=== PATIENT | female | born 1975 | race Caucasian/White ===

== ENCOUNTER → 2020-12-06 08:58 | Outpatient (BNVA) | payer BC, SELFPAY | PROVIDERS: PCP Family Medicine; Visit Provider Family Medicine | DX: E78.2 Mixed hyperlipidemia (principal); I10 Essential (primary) hypertension; R00.2 Palpitations; Z13.1 Encounter for screening for diabetes mellitus; Z86.39 Personal history of other endocrine, nutritional and metabolic disease | CPT/HCPCS: 80061; 83036; 84443 ==

== ENCOUNTER 2021-01-03 12:12 | Outpatient (CLI) | payer BC, SELFPAY ==
[2021-01-03 12:20] VITALS: BMI 31.8
--- NOTE | 2021-01-03 12:21 | ECG_ITS ---
[facility] Test Date: 2021-01-03 Pat Name: Meghana Arce Department: Room: Gender: Female Post Closer: : 1975 Requested By: Kerry Lopez Order Number: [id number] Harrison MD: Kerry Lopez M.D. Interpretive Statements NAME OF STUDY: TREADMILL STRESS ECHOCARDIOGRAM INDICATION: Shortness of Breath PROCEDURE: At the baseline, the patient's blood pressure was 116/86 mm Hg with a heart rate of 79 bpm and oxygen saturation of 98%. The baseline electrocardiogram showed normal sinus rhythm, normal axis with normal ST-Ts. The patient exercised for 6 minutes and 31 seconds on a standard Huang protocol. Patient attained a maximum heart rate of 161 beats per minute( 91 % of the maximum predicted heart rate) with a blood pressure at the peak exercise of 155/77 mm Hg and oxygen saturation of 98%. The EKG at the peak exercise revealed sinus tachycardia with no significant ST-T wave changes. Patient did [not have any chest pain or any significant EKG changes with the exercise. The study was terminated due to exertional fatigue and shortness of breath. During the recovery phase, there were no new changes. Blood pressure at the end of the recovery phase was 124/85 mm Hg with a heart rate of 97 beats per minute and oxygen saturation of 97%. Echocardiographic pictures were taken at the baseline, immediately following the peak exercise and during the recovery phase. CONCLUSION: 1. Normal EKG response to treadmill exercise. 2. No exercise-induced chest pain or cardiac arrhythmia. 3. Good exercise tolerance, attained a maximum of 10.2 METs. Maximum VO2 of 35.7 ml/kg/min. 4. Please see separate report for the echocardiographic response to exercise. Electronically Signed On 01-08-2021 11:26:06 CDT by Kerry Lopez M.D. [id number]
--- NOTE | 2021-01-03 12:35 | USCV_ITS ---
Meghana Arce Age: 45 Gender: F : 1975 Exam Date: 01/03/2021 12:40 Ordering Phys: Kerry Lopez MD ([email or web address]) Technologist: CASIE Exam Location: [place] Indication: Dyspnea on exertion Rhythm: Sinus Patient History: Cardiac Medications: Medications in past 24 hours: Contrast: Stress Results Protocol: Huang Total dose(mL): Exercise Duration (min:sec): 6:31 METS: 7.1 Resting HR: 79 Resting BP: 116 / 86 Peak HR: 161 Peak BP: 155 / 86 Max Predicted HR: 176 91 % Max Predicted HR Target HR: 150 Double Product: 59292 Stress Summary: The patient's target heart rate was achieved Fair exercise tolerance, achieving 7.1 METS and 91% of max predicted heart rate. BP Response: Normal Reason for Termination: Test terminated after reaching target heart rate (85% max predicted) Cardiac Symptoms: Short of Breath ECG Analysis Resting ECG: Stress ECG: Arrhythmia: MEASUREMENTS (Male/Female) Normal Values FINDINGS PROCEDURE: At the baseline, the patient's blood pressure was 116/86 mmHg with a heart rate of 79 bpm. The patient exercised for 6 minutes and 31 seconds on a standard Huang protocol. Patient attained a maximum heart rate of 161 bpm (91 % of the maximum predicted heart rate) with a blood pressure at the peak exercise of 155/86 mm Hg. During the recovery phase, there were no new changes. Echocardiographic pictures were taken at the baseline, immediately following the peak exercise and during the recovery phase. Baseline echocardiogram: Normal left ventricular size and systolic function with ejection fraction estimated at 60%. No regional wall motion abnormalities. Normal right ventricle size and systolic function. Normal left and right atrial size. No pericardial effusion. No intracardiac masses. Peak exercise echocardiogram: Normal augmentation of left ventricular systolic function with exercise. No new regional wall motion abnormalities. Recovery echocardiogram: Left ventricular systolic function normalizes. No regional wall motion abnormalities. CONCLUSIONS 1. This is a treadmill stress echocardiogram. 2. Fair exercise tolerance, attained a maximum [place] 7[place] [address]. 3. Normal blood pressure and heart rate response to exercise. 4. Normal echocardiographic response to exercise. 5. Please see separate report for the EKG portion of the study. Kerry Lopez MD (Electronically Signed) Final Date: 09 January 2021 12:31 S
[2021-01-03 13:03] VITALS: BP 124/85; PULSE 97
== END 2021-01-03 12:13 | disposition home or self-care (01) ==
LOC: CDL 12:15
PROVIDERS: PCP Family Medicine; Visit Provider Internal Medicine Cardiovascular Disease
DX: R06.09 Other forms of dyspnea (principal); R06.02 Shortness of breath
CPT/HCPCS: 93017; 93350

== ENCOUNTER → 2021-01-12 14:59 | Outpatient (BNVA) | payer BC, SELFPAY | PROVIDERS: PCP Family Medicine; Visit Provider Emergency Medicine | DX: M25.521 Pain in right elbow (principal) | CPT/HCPCS: 73080 ==

== ENCOUNTER → 2021-02-16 15:18 | Outpatient (BNVA) | payer BC, SELFPAY | PROVIDERS: PCP Family Medicine; Visit Provider Obstetrics & Gynecology | DX: Z12.4 Encounter for screening for malignant neoplasm of cervix (principal) | CPT/HCPCS: 88175 ==

== ENCOUNTER → 2021-03-12 09:04 | Outpatient (BNVA) | payer BC, SELFPAY | PROVIDERS: PCP Family Medicine; Referring Provider Internal Medicine; Visit Provider Internal Medicine | DX: R10.11 Right upper quadrant pain (principal); Z20.822 Contact with and (suspected) exposure to COVID-19 | CPT/HCPCS: 87635 ==

== ENCOUNTER 2021-03-16 07:54 | Day surgery (SDC) | payer BC, SELFPAY ==
[2021-03-14 13:28] VITALS: BMI 30.9
--- NOTE | 2021-03-16 08:03 | ANES.PREANE2 ---
Pre-Anesthetic Assessment Pre-Anesthetic Assessment: Height/Weight: Height 1.6 m Weight 79.379 kg Preop Diagnosis: RUQ pain Proposed Procedure: Operation Date: 03/16/21 09:30 Proposed Procedures p EGD R10.11 72764(Not Applicable) - Roderick Glynn MD Familial anesthetic complications: None Was Beta Jose Roberto taken within 24 hours: Yes Was Clonidine taken within 24 hours: N/A Last intake: . 8hrs Social: Social History: No alcohol and No tobacco Exam: Pre-Anes Outpt Exam: alert, oriented x 3, clear to auscultation bilaterally and regular rate & rhythm Airway: Cervical ROM: WNL MP: 1 Dentition: Full Pulmonary: Pulmonary: None reported CV/HEM: CV/HEM: HTN Comments: propanolol for palpitations GI: GI: GERD Metabolic: Metabolic: Hyperlipidemia Anesthetic Plan: ASA status: 2 Anesthesia: MAC Risk of > 500 ml blood loss (7ml/kg in children): No PFSH Anesthesia PFSH: Medical History Abnormal uterine bleeding (AUB) Family history of [place] (myocardial infarction) Gastritis History of COVID-19 Hyperglycemia Hypertension Lumbar pain Menometrorrhagia Hx uterine ablation Migraine Mixed hyperlipidemia History of muscle cramps in the past with another statin, unknown name Vitamin D deficiency Surgical History H/O section S/P endometrial ablation 2011 Family History Mother Diabetes Hyperlipidemia Hypertension Heart disease Father Hyperlipidemia Grandmother Heart disease maternal Denies family history of Colon cancer Ovarian cancer Clotting disorder Breast cancer Anesthesia complication Bleeding disorder Uterine cancer Thyroid condition Stroke Social History Smoking and tobacco status: never smoked Alcohol intake: never Female Reproductive History: Spontaneous abortions: No Data Anesthesia Cardiac Studies: No Data to Display
[2021-03-16 08:40] VITALS: BP 112/75; PULSE 64; RESP 16; TEMP 36.4; O2SAT 100
[2021-03-16] MEDS: sodium chloride 0.9% 1,000 ML 30 ML IV (08:52)
--- NOTE | 2021-03-16 09:01 | P.HP_ITS ---
Same Day Surgery H&P Indication for Procedure/HPI DATE OF PROCEDURE: March 16, 2021 CHIEF COMPLAINT/INDICATIONFOR SURGICAL PROCEDURE: Postprandial abdominal pain PREOP DIAGNOSIS: RUQ pain PLANNED PROCEDRUE: Operation Date: 03/16/21 09:30 Proposed Procedures p EGD R10.11 03088(Not Applicable) - Roderick Glynn MD Medications/Allergies* Home Medications Medication Instructions Recorded Confirmed Type cholecalciferol (vitamin D3) 25 50 mcg PO DAILY cap 09/04/20 03/16/21 History mcg (1,000 unit) capsule Allergies/Adverse Reactions Allergy/AdvReac Type Severity Reaction Status Date / Time doxycycline Allergy breathing Verified 03/16/21 08:35 trouble/hives NSAIDS (Non-Steroidal AdvReac Mild ADR-Gastric Verified 03/16/21 08:35 Anti-Inflamma Ulcers Current Medications: Generic Name Dose Route Start Last Admin Trade Name Freq PRN Reason Stop Dose Admin Sodium Chloride 1,000 mls @ 30 mls/hr 03/16/21 08:30 03/16/21 08:52 Sodium Chloride 0.9% IV 03/17/21 08:29 30 mls/hr .Q24H CATHERINE Administration Pertinent History/Comorbid Conditions* Medical History (Updated 03/07/21 @ 11:15 by Roderick Glynn MD) Abnormal uterine bleeding (AUB) Family history of [place] (myocardial infarction) Gastritis History of COVID-19 Hyperglycemia Hypertension Lumbar pain Menometrorrhagia Hx uterine ablation Migraine Mixed hyperlipidemia History of muscle cramps in the past with another statin, unknown name Vitamin D deficiency Surgical History (Updated 02/25/21 @ 14:41 by Rj Hinton MD) H/O section S/P endometrial ablation 2011 Family History (Updated 02/16/21 @ 14:44 by Angela Hoff RN) Diabetes Mother Heart disease Mother Grandmother maternal Hyperlipidemia Mother Father Hypertension Mother Denies family history of Colon cancer Ovarian cancer Clotting disorder Breast cancer Anesthesia complication Bleeding disorder Uterine cancer Thyroid condition Stroke Social History Smoking and tobacco status: never smoked Alcohol intake: never Pertinent Exam Findings alert, oriented x 3, clear to auscultation bilaterally, regular rate & rhythm, operative site marked and procedure specific exam findings Recommendations Surgery/Procedure today Coding Level of Care Code 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
[2021-03-16 09:15] VITALS: BP 97/61; PULSE 82; RESP 20; TEMP 36.1; O2SAT 95
[2021-03-16 09:30] VITALS: BP 94/70; PULSE 69; RESP 18; O2SAT 98
--- NOTE | 2021-03-16 14:52 | ANE.PACU2 ---
Inpatient post-anesthesia follow up: Airway intact: Yes Vital signs: Temperature 97 F Pulse Rate 69 Respiratory Rate 18 Blood Pressure 94/70 Pulse Oximetry 98 Oxygen Delivery Me thod Room Air Oxygen Flow Rate Fraction of Inspir ed Oxygen Hydration adequate: Yes Nausea and vomiting: No Pain level: 1 Mental status: Baseline
[2021-03-19 05:54] LABS: H. Pylori / CLO Test Negative
== END 2021-03-16 10:00 | disposition home or self-care (01) ==
PROVIDERS: PCP Family Medicine; Visit Provider Internal Medicine
PROC: 0DJ08ZZ Inspection of Upper Intestinal Tract, Via Natural or Artificial Opening Endoscopic (ICD-10-PCS; CPT 43235; principal; 2021-03-16 09:30)
DX: R10.11 Right upper quadrant pain (principal); K29.70 Gastritis, unspecified, without bleeding; Z82.49 Family history of ischemic heart disease and other diseases of the circulatory system; Z86.16 Personal history of COVID-19; I10 Essential (primary) hypertension; E78.2 Mixed hyperlipidemia; Z83.3 Family history of diabetes mellitus
CPT/HCPCS: 43239; 87077; 96360; J2704; J7030

== ENCOUNTER → 2021-03-29 09:55 | Outpatient (BNVA) | payer BC, SELFPAY | PROVIDERS: PCP Family Medicine; Referring Provider Surgery; Visit Provider Surgery | DX: Z20.822 Contact with and (suspected) exposure to COVID-19 (principal) | CPT/HCPCS: 87635 ==

== ENCOUNTER 2021-04-04 05:46 | Day surgery (SDC) | payer BC, SELFPAY ==
[2021-04-03 09:08] VITALS: BMI 29.2
[2021-04-04] VITALS (7 sets, daily range): BP systolic 101–118; BP diastolic 62–86; PULSE 59–99; RESP 16–18; TEMP 36.2–36.4; O2SAT 92–100
[2021-04-04] MEDS: sodium chloride 0.9% 1,000 ML 30 ML IV (06:09)
--- NOTE | 2021-04-04 06:54 | W.PM.OPSUD ---
Surgery/Procedure H&P Update DATE OF PROCEDURE: April 04, 2021 DATE H&P PERFORMED: 03/23/21 H&P UPDATE INFORMATION: I have reviewed H&P completed within last 30 days, I have examined patient prior to procedure and No changes to prior documentation PREOP DIAGNOSIS: Chronic cholecystitis PLANNED PROCEDURE: Operation Date: 04/04/21 07:00 Proposed Procedures p Laparoscopic Cholecystectomy 73560 R10.11(Not Applicable) - Alejandro Valdes MD
[2021-04-04 07:01] LABS: OR HCG Qualitative Urine Negative (Negative)
--- NOTE | 2021-04-04 07:37 | PM.OP ---
Operative Report Date of procedure: April 04, 2021 Pre-op Diagnosis: Chronic cholecystitis Post-op diagnosis: same Procedure Done: Laparoscopic cholecystectomy Specimens removed/disposition: Gallbladder Surgeon: Alejandro Valdes Anesthesia: General Condition: stable Disposition: PACU Procedure: The patient was taken to the operating room and was intubated under general anesthesia. After the antibiotic had been administered, the abdomen was prepped and draped in a sterile manner. Using a #15 blade, a 1 centimeter infraumbilical curvilinear incision was made and using an open Bettina technique the peritoneal cavity was entered. A 10 millimeter port was placed and 15 millimeters of pneumoperitoneum was created. A 10 millimeter, 30 degrees scope was then introduced. Three 5 millimeter ports were placed in the epigastric, midclavicular and the anterior axillary line two fingerbreadths below the costal margin on the right side under the direct visualization. Ratcheted forceps were introduced into the lateral most port and was used to retract the fundus of the gallbladder cephalad and using forceps the infundibulum of the gallbladder was retracted laterally. Using L-hook cautery the peritoneum overlying the Calot's triangle was opened medially and laterally until the cystic duct and the anterior and posterior branch of cystic artery were skeletonized. Dissection was carried along the body of the gallbladder and after ensuring critical view of safety, 4 clips applied on the cystic duct and 3 clips applied on the cystic artery and cut leaving, 3 clips on the remaining portion of the duct and 2 clips on the remaining portion of anterior and posterior branch of the artery. The rest of the gallbladder was dissected off the liver using L-hook cautery. There was no bleeding or bile leaking noted from the gallbladder fossa and the clips appeared to be in place. An EndoCatch bag was introduced to remove the gallbladder. All the ports were removed under direct visualization and there was no bleeding noted from the port sites. The fascia of the umbilicus was closed using [id number] 0 Vicryl sutures and the subcutaneous tissue was approximated using 3-0 Vicryl sutures. The skin at all four ports were closed using 4-0 Monocryl and Dermabond. A total of 10 millimeters of 0.5% Marcaine was infiltrated around the port sites. The patient was stable throughout the procedure.
--- NOTE | 2021-04-04 07:46 | ANES.PREANE2 ---
Pre-Anesthetic Assessment Pre-Anesthetic Assessment: Height/Weight: Height 1.63 m Weight 77.111 kg Temp Pulse Resp BP Pulse Ox 97.5 F L 99 18 101/69 99 04/04/21 06:00 04/04/21 06:00 04/04/21 06:00 04/04/21 06:00 04/04/21 06:00 Preop Diagnosis: Chronic cholecystitis Proposed Procedure: Operation Date: 04/04/21 07:00 Proposed Procedures p Laparoscopic Cholecystectomy 95797 R10.11(Not Applicable) - Alejandro Valdes MD Was Beta Jose Roberto taken within 24 hours: Yes Was Clonidine taken within 24 hours: N/A Last intake: Intake Last Liquid Date 04/03/21 Last Liquid Time 21:00 Last Solid Date 04/03/21 Last Solid Time 17:30 Social: Social History: No alcohol and No tobacco Exam: Pre-Anes Outpt Exam: alert, oriented x 3, clear to auscultation bilaterally and regular rate & rhythm Airway: Submandibular: WNL Cervical ROM: WNL MP: 2 Dentition: Full CV/HEM: CV/HEM: HTN GI: GI: GERD Anesthetic Plan: ASA status: 2 Anesthesia: General Risk of > 500 ml blood loss (7ml/kg in children): No Meds/Allergies Current Medications: Current Medications Generic Name Dose Route Start Last Admin Trade Name Freq PRN Reason Stop Dose Admin Bupivacaine HCl 10 ml 04/04/21 07:42 04/04/21 07:17 Bupivacaine 0.5% Inj 10 Ml INJECTION 04/04/21 07:43 10 ml ONCE ONE Administration Sodium Chloride 1,000 mls @ 30 ml s/hr 04/04/21 06:00 04/04/21 06:09 Sodium Chloride 0.9% IV 04/05/21 05:59 30 mls/hr .Q24H CATHERINE Administration PFSH Anesthesia PFSH: Medical History (Updated 04/04/21 @ 07:00 by Alejandro Valdes MD) Gastritis History of COVID-19 Hypertension Lumbar pain Menometrorrhagia Hx uterine ablation Migraine Mixed hyperlipidemia History of muscle cramps in the past with another statin, unknown name Vitamin D deficiency Surgical History (Updated 04/04/21 @ 07:00 by Alejandro Valdes MD) H/O section S/P endometrial ablation 2012 Status post laparoscopic cholecystectomy (04/04/21) Family History Mother Diabetes Hyperlipidemia Hypertension Heart disease Father Hyperlipidemia Grandmother Heart disease maternal Denies family history of Colon cancer Ovarian cancer Clotting disorder Breast cancer Anesthesia complication Bleeding disorder Uterine cancer Thyroid condition Stroke Social History Alcohol intake: never Female Reproductive History: Spontaneous abortions: No Data Anesthesia Other Labs: Laboratory Results - last 48 hr 04/04/21 06:59 Urine HCG, Qual Negative Cardiac Studies: No Data to Display
--- NOTE | 2021-04-04 08:03 | SUR.PHASEI ---
PT AWAKES TO VOICE, VSS ABD SOFT WITH 4 SITES WITH EXOFIN, VSS GOOD RESP EFFORT.
[2021-04-04] MEDS: HYDROcodone-acetaminophen 5-325 mg Tablet 1 TAB PO (08:43)
--- NOTE | 2021-04-04 17:49 | ANE.PACU2 ---
Inpatient post-anesthesia follow up: Airway intact: Yes Vital signs: Temperature 97.6 F Pulse Rate 59 Respiratory Rate 18 Blood Pressure 118/86 Pulse Oximetry 96 Oxygen Delivery Me thod Room Air Oxygen Flow Rate 8 Fraction of Inspir ed Oxygen Hydration adequate: Yes Nausea and vomiting: No Pain level: 2 Mental status: Baseline
== END 2021-04-04 09:25 | disposition home or self-care (01) ==
PROVIDERS: Anesthesiology; PCP Family Medicine; Visit Provider Surgery
PROC: 0FT44ZZ Resection of Gallbladder, Percutaneous Endoscopic Approach (ICD-10-PCS; CPT 47562; principal; 2021-04-04 07:00)
DX: K81.1 Chronic cholecystitis (principal); I10 Essential (primary) hypertension; K21.9 Gastro-esophageal reflux disease without esophagitis; Z86.16 Personal history of COVID-19; E78.2 Mixed hyperlipidemia
CPT/HCPCS: 47562; 81025; 84703; 88304; J0690; J1100; J2405; J2704; J2710; J3010; J3490; J7030

== ENCOUNTER → 2021-04-27 10:37 | Outpatient (BNVA) | payer BC, SELFPAY | PROVIDERS: PCP Family Medicine; Referring Provider Obstetrics & Gynecology; Visit Provider Obstetrics & Gynecology | DX: D25.9 Leiomyoma of uterus, unspecified (principal); N93.9 Abnormal uterine and vaginal bleeding, unspecified | CPT/HCPCS: 87635 ==

== ENCOUNTER 2021-05-02 14:05 | Observation (INO) | payer BC, SELFPAY ==
[2021-04-30 10:12] VITALS: BMI 29.2
--- NOTE | 2021-04-30 12:37 | ANES.PREANE2 ---
Pre-Anesthetic Assessment Pre-Anesthetic Assessment: Height/Weight: Height 1.63 m Weight 77.111 kg Preop Diagnosis: Chronic cholecystitis Proposed Procedure: Operation Date: 05/02/21 08:30 Proposed Procedures p Laparoscopic Assist Vaginal Hysterectomy 80392 n39.9 d25.9(Not Applicable) - Rj Hinton MD Was Beta Jose Roberto taken within 24 hours: Yes Was Clonidine taken within 24 hours: N/A Social: Social History: No alcohol and No tobacco Exam: Pre-Anes Outpt Exam: alert, oriented x 3, clear to auscultation bilaterally and regular rate & rhythm Airway: Submandibular: WNL Cervical ROM: WNL MP: 2 Dentition: Full CV/HEM: CV/HEM: HTN GI: GI: GERD Metabolic: Metabolic: Hyperlipidemia Anesthetic Plan: ASA status: 2 Anesthesia: General Risk of > 500 ml blood loss (7ml/kg in children): No PFSH Anesthesia PFSH: Medical History Gastritis History of COVID-19 Hypertension Lumbar pain Menometrorrhagia Hx uterine ablation Migraine Mixed hyperlipidemia History of muscle cramps in the past with another statin, unknown name Vitamin D deficiency Surgical History H/O section S/P endometrial ablation 2012 Status post laparoscopic cholecystectomy (04/04/21) Family History Mother Diabetes Hyperlipidemia Hypertension Heart disease Father Hyperlipidemia Grandmother Heart disease maternal Denies family history of Colon cancer Ovarian cancer Clotting disorder Breast cancer Anesthesia complication Bleeding disorder Uterine cancer Thyroid condition Stroke Social History Smoking and tobacco status: never smoked Alcohol intake: never Female Reproductive History: Date of last menstrual period: 02/24/13 Spontaneous abortions: No Data Anesthesia Cardiac Studies: No Data to Display
[2021-05-02] VITALS (11 sets, daily range): BP systolic 95–123; BP diastolic 58–84; PULSE 63–86; RESP 12–22; TEMP 36.4–36.9; O2SAT 96–100
[2021-05-02] MEDS: sodium chloride 0.9% 1,000 ML 30 ML IV (09:52)
--- NOTE | 2021-05-02 09:53 | P.ANESUD_ITS ---
Pre-Anesthetic Update Pre-Anesthetic Assessment: Date of Surgery/Procedure: 05/02/21 Preop Saida gnosis: Abnormal uterine bleeding, uterine fibroid Proposed Procedure: Operation Date: 05/02/21 10:40 Proposed Procedures p Laparoscopic Assist Vaginal Hysterectomy 13975 n39.9 d25.9(Not Applicable) - Rj Hinton MD Any changes to Pre-Anesthetic Assessment?: No Last Intake: Intake Last Liquid Date 05/01/21 Last Liquid Time 21:00 Last Solid Date 05/01/21 Last Solid Time 19:30 Vitals: Temperature 97.8 F 05/02/21 09:32 Temperature Source Temporal Artery S can 05/02/21 09:32 Pulse Rate 80 05/02/21 09:32 Respiratory Rate 18 05/02/21 09:32 Blood Pressure 123/84 05/02/21 09:32 Blood Pressure Penelope n 97 05/02/21 09:32 Pulse Oximetry 100 05/02/21 09:32 Oxygen Delivery Me thod 05/02/21 09:38 Exam: Pre-Anes Outpt Exam: alert, oriented x 3, clear to auscultation bilaterally and regular rate & rhythm Cardiac Studies: No Data to Display
[2021-05-02] MEDS: scopolamine 1.5 Patch 1 PATCH TRANSDERMA (09:55)
[2021-05-02] MEDS: sodium chloride 0.9% 500 ML IV (09:56)
[2021-05-02 10:08] LABS: Basophils # 0.1 10^3/uL (0.0-0.1); Basophils % 0.9 %; Eosinophils # 0.2 10^3/uL (0.0-0.8); Eosinophils % 1.8 %; Hematocrit 45.4 % (37.0-47.0); Lymphocytes # 3.1 10^3/uL (0.8-4.8); Lymphocytes % 35.5 %; Mean Corpuscular Hemoglobin 29.6 pg (28.0-34.0); Mean Corpuscular Volume 89.5 fl (81-99); Mean Platelet Volume 11.2 fL (7.4-10.4); Monocytes # 0.6 10^3/uL (0.2-0.9); Monocytes % 7.1 %; Neutrophils # 4.74 10^3/uL (1.8-7.7); Neutrophils % 54.4 %; Nucleated Red Blood Cells % 0 %; Platelet Count 342 10^3/cmm (130-400); Red Blood Count 5.07 10^6/uL (4.1-5.3); Red Cell Distribution Width 12.7 % (12.1-15.1); White Blood Count 8.7 10^3/uL (4.0-10.0)
[2021-05-02 10:11] LABS: Add Urine Microscopic? NO; Charge for UA Resulting for Rev
[2021-05-02 10:26] LABS: Blood Urine Neg (Negative); Glucose Urine UA Norm (Normal); Ketones Urine Negative (Negative); Protein Urine Neg (Negative); Urine Appearance Clear (CLEAR); Urine Color Yellow (Yellow); pH Urine 5 (5-7)
[2021-05-02 10:27] LABS: Bilirubin Urine Neg (Negative); Leukocyte Esterase Urine Negative (Negative); Nitrate Urine Negative (Negative); Urobilinogen Urine Norm (Negative)
[2021-05-02 10:28] LABS: OR HCG Qualitative Urine Negative (Negative)
--- NOTE | 2021-05-02 10:42 | W.PM.OPSUD ---
Surgery/Procedure H&P Update DATE OF PROCEDURE: May 02, 2021 DATE H&P PERFORMED: 05/02/21 H&P UPDATE INFORMATION: I have reviewed H&P completed within last 30 days, I have examined patient prior to procedure and No changes to prior documentation PREOP DIAGNOSIS: Abnormal uterine bleeding, uterine fibroid PLANNED PROCEDURE: Operation Date: 05/02/21 10:40 Proposed Procedures p Laparoscopic Assist Vaginal Hysterectomy 32431 n39.9 d25.9(Not Applicable) - Rj Hinton MD
[2021-05-02] MEDS: ceFOXitin 2,000 MG in sodium chloride 0.9% (plus) 50 ML 100 MG IV (11:13)
--- NOTE | 2021-05-02 13:18 | P.OP_ITS ---
Operative Report Date of procedure: May 02, 2021 Pre-op Diagnosis: Abnormal uterine bleeding, uterine fibroid Post-op diagnosis: same Post-op Findings: Enlarged uterus Procedure Done: Laparoscopic-assisted vaginal hysterectomy Specimens removed/disposition: Uterus left and right fallopian tubes Pathology: Uterus left and right fallopian tube Surgeon: Rj Hinton MD Anesthesia: General Estimated blood loss (mL): 100 IV fluids (mL): 700 Urine output (mL): 200 Complications: none Condition: stable Disposition: PACU Procedure: After discussing informed consent again, the patient was taken to the operating room where general anesthesia was administered. She was placed in the dorsal lithotomy position in low stirrups and prepped and draped in sterile fashion. Pre-Procedure Time-Out verifying the correct patient identity, correct procedure verified with consent, correct site and side, correct patient position, availability of correct implants and any special equipment or requirements was performed and acknowledge by the OR team. After the initial preparation, the procedure commenced at the vagina. With a Bookwalter vaginal retractor was place to visualize the cervix; the anterior and posterior lips of the cervix were separately grasped and clamped with jack tooth tenaculum. The cervix was then dilated to a #6 hegar dilator and a uterine manipulator within the uterine cavity for manipulation purposes being careful not to puncture the uterus. A Meehan catheter was placed in the bladder. Attention was then turned to the abdomen. The umbilical region was infiltrated with 0.5% Marcaine with epinephrine. Following infiltration with Marcaine, an intraumbilical incision was made and the Verres needle was gently advanced taking care to feel for the typical sensation of penetrating the peritoneum. With CO2 infiltration, an opening pressure of 5 mmHg was noted, and following this, a pneumoperitoneum of 15 mmHg was created. A 5 mm Optiview trocar was then passed through the same incision under direct visualization. Trocar was removed and the laparoscope was then inserted through the trocar sleeve. Visualization of the peritoneal cavity was then obtained and a brief inspection did not reveal any signs of complications from entry. Under direct observation, a second incision was made 3 cm above the symphysis pubis, and a 5 mm trocar and sleeve were admitted into the abdomen un jimenez direct, laparoscopic visualization, 5mm flank ports were then placed laterally on left sides taking care to respect anatomical landmarks and vessels without complication. Once the placement of the ports was complete, the actual laparoscopic procedure began. The pelvic contents were visualized and noted an enlarged irregular uterus, deep cul-de-sac, normal bilateral fallopian tubes and ovaries normal, normal appendix, and both ureters were identified crossing the pelvic brim and pelvic sidewall. The left mesosalpinx ligament was grasped and was coagulated/sealed and then transected with the Voyant device. The mesosalpinx was then sequentially, clamped, ligated, and cut using the Enseal device working alongside the length of the tube and towards the cornua. The left round ligament was grasped coagulated/sealed and transected using the Voyant device. The left broad ligament was opened down to the level of the uterine artery and vein. The right mesosalpinx ligament was grasped and the tuboovarian ligament was coagulated/sealed and then transected with the Voyant device. The mesosalpinx was then sequentially, clamped, ligated, and cut using the Enseal device working alongside the length of the tube and towards the cornua. The right round ligament was grasped coagulated/sealed and then transected with the Voyant device, and the right broad ligament was opened down to the level of the right uterine artery and vein. Peritoneum of the lower uterine segment was entered using Voyant device, and the bladder was dissected off the lower uterine segment using blunt dissection. Careful inspection revealed complete hemostasis. Attention was then turned to the vaginal aspect of the surgery. The Meehan catheter was clamped. A Bookwalter vaginal retractor was placed in the vagina and the uterine manipulator was removed. The tenaculum was repositioned anteriorly and posteriorly. A circumferential incision was made at the cervical vaginal reflection using cautery. This was undermined first anteriorly and a colpotomy made without difficulty. This was then repeated posteriorly and a similar colpotomy made. Beginning first on the patient's left, the uterosacral and cardinal ligament was clamped, sealed, divided with the Enseal device and suture ligated. Two bites were required to reach the previous dissection margin of the left side. The same process was then repeated on the patient's right hand side, at which point, the specimen was completely freed. Once the sutures had been placed and the pedicles secured, the uterus along with both tubes and ovaries were removed transvaginally without difficulty. All pedicles were inspected and hemostasis was confirmed. The patietn was given indigo carmine. The vaginal vault was then oversewn with a running locking Vicryl suture, securing first the posterior edge of the cuff followed by the anterior edge. Good hemostasis was obtained. Two ikvzbv-[id number]-awidr sutures were then placed across the vaginal vault to close it. Once these had been tied off, all sutures were trimmed. All instruments were removed from the vagina at this time. Then attention was again turned back to the abdomen and inspected the abdomen to ensure complete hemostasis. Once the entire abdomen was inspected. The ports were then removed under direct visualization being sure to note hemostasis of the port sites on removal. The incisions were then closed with interrupted Monocryl sutures and dermodond adhesive. The patient tolerated the procedure well, anesthesia reversed, and the patient was taken to the recovery room in stable condition. All sponges, instruments, and sharps were counted and correct x 3.
--- NOTE | 2021-05-02 13:37 | P.PCN_ITS ---
PACU note PACU note: VSS, Good respiratory effort, report to DATA CENTER ENGINEER Post-Anesthesia Exam: awake
--- NOTE | 2021-05-02 13:37 | PM.PACU ---
PACU note PACU note: VSS, Good respiratory effort, report to BOTANICAL TECHNICAL OFFICER Post-Anesthesia Exam: awake
[2021-05-02] MEDS: fentaNYL 50 mcg/mL INJ 2mL IVP ×2 (13:40→13:45)
--- NOTE | 2021-05-02 13:58 | ANE.PACU2 ---
Inpatient post-anesthesia follow up: Airway intact: Yes Vital signs: Temperature 97.6 F Pulse Rate 75 Respiratory Rate 17 Blood Pressure 111/71 Pulse Oximetry 96 Oxygen Delivery Me thod Room Air Oxygen Flow Rate Fraction of Inspir ed Oxygen Hydration adequate: Yes Nausea and vomiting: No Pain level: 2 Mental status: Baseline
[2021-05-02] MEDS: ketorolac 30 mg/mL INJ IVP (14:45)
[2021-05-02] MEDS: dextrose 5%-lactated ringers 1,000 ML 125 ML IV (15:13)
[2021-05-02] MEDS: HYDROcodone-acetaminophen 5-325 mg Tablet PO (18:27)
[2021-05-02] MEDS: docusate sodium 100 mg Capsule PO (18:28)
[2021-05-03 04:00] VITALS: BP 90/59; PULSE 61; RESP 16; TEMP 37.1
[2021-05-03 04:33] LABS: Hematocrit 33.4 % (37.0-47.0); Hemoglobin 11.3 g/dL (11.5-15.3); Mean Corpuscular HGB Conc 33.8 g/dL (30.0-36.0); Mean Corpuscular Hemoglobin 29.3 pg (28.0-34.0); Mean Corpuscular Volume 86.5 fl (81-99); Mean Platelet Volume 11.2 fL (7.4-10.4); Platelet Count 262 10^3/cmm (130-400); Red Blood Count 3.86 10^6/uL (4.1-5.3); Red Cell Distribution Width 12.4 % (12.1-15.1); White Blood Count 12.8 10^3/uL (4.0-10.0)
[2021-05-03] MEDS: ibuprofen 800 mg tablet PO (08:44)
[2021-05-03] MEDS: atorvastatin 40 mg Tablet 20 MG PO (08:44)
[2021-05-03] MEDS: docusate sodium 100 mg Capsule PO (08:44)
[2021-05-03] MEDS: pantoprazole DR 40 mg Tablet PO (08:44)
[2021-05-03] MEDS: HYDROcodone-acetaminophen 5-325 mg Tablet PO (08:45)
--- NOTE | 2021-05-03 08:59 | P.DS_ITS ---
Discharge Providers LINING STAMPER Date of Admission: 05/02/21 14:05 Date of Discharge: 05/03/21 Attending Provider at Admission: Rj Hinton MD Attending Provider at Discharge: Rj Hinton MD Primary Care Provider: Netta Jorgensen MD Reason for Visit Reason for Visit: lap assisted vaginal hysterectomy Hospital Course Hospital Course Mrs. Arce 46-year-old female admitted for planned laparoscopic-assisted vaginal hysterectomy. The laparoscopic-assisted vaginal hysterectomy was performed without complications. Overnight observation has been uneventful. Pain has been well under control with medication. Tolerating diet well. Ambulating without difficulty. Physical Exam Narrative: EXAM NARRATIVE: GA: Alert and oriented ?3. HEENT: WNL. Heart: Regular rate and rhythm. Lungs: Clear to auscultation bilaterally. Abdomen: Bowel sounds present, nontender, minimal tenderness, incision clean and dry, no redness, pain or edema. GANG INVESTIGATOR: No bleeding. Extremities: No edema, no cyanosis, no calves pain. Urinary Catheter Management^: Meehan: Cath Placed During This Visit: yes, but has since been removed by the nurse Reason for Continuing Indwelling Catheter: Decision to DC Catheter Urinary Catheter Date of Insertion: 05/02/21 Urinary Catheter Time of Insertion: 11:50 Date Urinary Catheter Removed: 05/03/21 Time Urinary Catheter Discontinued: 05:00 Discharge Data Data Completed and Pending: Pending at discharge Category Date Time Status ES surgery / GI i mages Routine Exams 05/02/21 06:53 Taken Pathology: Surgic al [PTH] Routine Pth 05/02/21 13:06 Received Labs from last 24 hours 05/03/21 05/02/21 05/02/21 04:07 09:50 09:48 WBC 12.8 H 8.7 RBC 3.86 L 5.07 Hgb 11.3 L 15.0 Hct 33.4 L 45.4 MCV 86.5 89.5 MCH 29.3 29.6 MCHC 33.8 33.0 RDW 12.4 12.7 Plt Count 262 342 MPV 11.2 H 11.2 H Neut % (Auto) 54.4 Lymph % (Auto) 35.5 [place] % (Auto) 7.1 Eos % (Auto) 1.8 Baso % (Auto) 0.9 Neut # (Auto) 4.74 Lymph # (Auto) 3.1 [place] # (Auto) 0.6 Eos # (Auto) 0.2 Baso # (Auto) 0.1 Nucleated RBC % (a uto) 0 Nucleated RBCs # 0.0 Urine Color Urine Appearance Urine pH Ur Specific Gravit y Urine Protein Urine Glucose (UA) Urine Ketones Urine Blood Urine Nitrate Urine Bilirubin Urine Urobilinogen Ur Leukocyte Chhaya ase Urine HCG, Qual Blood Type A Positive Rho(D) Type Positive Antibody Screen Negative 05/02/21 05/02/21 09:30 09:30 WBC RBC Hgb Hct MCV MCH MCHC RDW Plt Count MPV Neut % (Auto) Lymph % (Auto) [place] % (Auto) Eos % (Auto) Baso % (Auto) Neut # (Auto) Lymph # (Auto) [place] # (Auto) Eos # (Auto) Baso # (Auto) Nucleated RBC % (a uto) Nucleated RBCs # Urine Color Yellow Urine Appearance Clear Urine pH 5 Ur Specific Gravit y 1.020 Urine Protein Neg Urine Glucose (UA) Norm Urine Ketones Negative Urine Blood Neg Urine Nitrate Negative Urine Bilirubin Neg Urine Urobilinogen Norm Ur Leukocyte Chhaya ase Negative Urine HCG, Qual Negative Blood Type Rho(D) Type Antibody Screen Vitals: Last Vital Signs Temp 98.7 F 05/03/21 04:00 Pulse 61 05/03/21 04:00 Resp 16 05/03/21 04:00 BP 90/59 05/03/21 04:00 Pulse Ox 97 05/02/21 19:30 Discharge Plan Discharge Patient Disposition: Home Condition: Stable Prescriptions: New ibuprofen 800 mg tablet 800 mg PO TID PRN (Reason: pain) Qty: 60 RF: 0 hydrocodone-acetaminophen 5-325 mg tablet 1 tab PO Q4H PRN (Reason: pain) Qty: 30 RF: 0 Iron (ferrous sulfate) 325 mg (65 mg iron) tablet 325 mg PO BID Qty: 60 RF: 0 Colace 100 mg capsule 100 mg PO BID Qty: 30 RF: 0 acetaminophen 325 mg capsule 325 mg PO Q4H PRN (Reason: fever or pain) Qty: 60 RF: 0 Continued cholecalciferol (vitamin D3) 25 mcg (1,000 unit) capsule 50 mcg PO DAILY RF: 0 lisinopril 10 mg tablet 10 mg PO DAILY 90 Days Qty: 90 RF: 0 Hold Instructions: Home Medication placed on hold at Doctor's office pantoprazole 20 mg tablet,delayed release (DR/EC) 20 mg PO DAILY 90 Days Qty: 90 RF: 0 propranolol 80 mg capsule,extended release 24 hr 80 mg PO DAILY 90 Days Qty: 90 RF: 1 rizatriptan 10 mg tablet 10 mg PO Q2H PRN (Reason: headache) Qty: 9 RF: 5 pravastatin 20 mg tablet 20 mg PO DAILY 90 Days Qty: 90 RF: 1 [id number] [Fioricet] 50-300-40 mg capsule 2 cap PO Q4H PRN (Reason: headache) Qty: 10 RF: 0 Discharge Orders: Discharge Order (Routine); Ordered 05/03/21 Ordered By: Rj Hinton Referrals: Rj Hinton MD [Physician] - 2 weeks Discharge Diet: Usual diet Discharge Activity: Increase activity as tolerated Patient Instructions: Opioid Safety Activity Restrictions/Additional Instructions: 1. Please call [facility] on next working day to make your post-operative appointment in 2 weeks. 2. Please stay home until you come back to the clinic on first post-operative check up. 3. Please follow instructions on your medications CAREFULLY. 4. If you have abdominal incision, do not cover it unless dressing is necessary because of drainage. OK to shower, but avoid bath. Leave steri-strips until they fall off. If they are still on one week after surgery, you may remove them. 5. If you had vaginal surgery or vaginal repair, Dr. Hinton may instruct you to take SITZ bath. 6. Yellow, blood tinged odorous vaginal discharge is usually normal after hysterectomy or vaginal surgeries. 7. No sexual intercourse, tampons, or douches until you are completely released from the post-operative care. 8. Avoid constipation by eating right and maybe using some Metamucil or Milk of Magnesia. 9. All prescription refills are given during the working hours. Please do no wait till it runs out. Call the clinic at [phone] before your medication runs out. The clinic will get in touch with your doctor to prescribe medications if necessary. 10. Please remain within 40 mile radius from our hospital because emergencies do happen now and then during the post-operative period. 11. If you have stairs at home, take one step at a time slowly and minimize the number of trips. It helps to stay in one floor for the next few days. No lifting except what you can lift by one hand until you are released from the post-operative care. 12. Driving is discouraged until you are well healed. It may be 3-4 weeks before you feel strong enough to drive. You should be able to turn and look through the rear window without pain and you should be able to push the brake pedal very hard without pain before you drive. No fast rules, but SAFETY should be your primary concern. DO NOT drive if you are on sedating medications such as narcotics. 13. Call the clinic (during working hours) to make urgent appointment or go to the Emergency room, if any of the following occurs: i. Vaginal bleeding becomes heavy, more than a period. ii. Incision becomes red and sore, or drains pus. iii. Your temperature is over 100.4 or you have chill. iv. IV site becomes red and swollen (a little ``knot?? is usually OK) v. Persistent nausea and vomiting vi. Persistent constipation or diarrhea vii. Rash or allergic reaction to medications. Discharge Attestations LINING STAMPER Time Spent in Discharge Care*: greater than 30 min Coding Level of Care Code Acute Strike On Machine Operator for [place] Don
[2021-05-03 09:50] VITALS: BP 107/65; PULSE 77; RESP 16; TEMP 36.9
== END 2021-05-03 10:00 | disposition home or self-care (01) ==
LOC: OBGYN 14:05
PROVIDERS: Admitting Provider Obstetrics & Gynecology; PCP Family Medicine; Visit Provider Obstetrics & Gynecology
PROC: 0UT9FZZ Resection of Uterus, Via Natural or Artificial Opening With Percutaneous Endoscopic Assistance (ICD-10-PCS; CPT 58552; principal; 2021-05-02 10:40)
DX: N93.9 Abnormal uterine and vaginal bleeding, unspecified (principal); D25.9 Leiomyoma of uterus, unspecified; I10 Essential (primary) hypertension; K21.9 Gastro-esophageal reflux disease without esophagitis; E78.5 Hyperlipidemia, unspecified; Z86.16 Personal history of COVID-19; E78.2 Mixed hyperlipidemia; E55.9 Vitamin D deficiency, unspecified; Z82.49 Family history of ischemic heart disease and other diseases of the circulatory system; Z83.3 Family history of diabetes mellitus
CPT/HCPCS: 58552; 36415; 81003; 84703; 85025; 85027; 86850; 86900; 88307; 96365; G0378; J0694; J1100; J1885; J2405; J2704; J2710; J3010; J3490; J7030; J7040; Q9968

== ENCOUNTER 2021-05-15 10:46 | Outpatient (CLI) | payer BC, SELFPAY ==
--- NOTE | 2021-05-15 11:30 | MM_ITS ---
WS: [id number] BILATERAL SCREENING DIGITAL MAMMOGRAM WITH CAD HISTORY: Z12.39 - Encounter for other screening for malignant neoplasm... COMPARISON: 05/10/2020, 12/19/2017 and 10/25/2015 Bilateral CC and MLO views submitted. Computer aided detection analyzed. Breast composition: The breasts are heterogeneously dense, which may obscure small masses. No suspici ous masses, microcalcifications or architectural distortion. Scattered asymmetries in each breast hav e been stable over several prior years. MM/[id number] IMPRESSION: BI-RADS: 2-Benign FOLLOW UP: 1 Year Follow-up
== END 2021-05-15 10:47 | disposition home or self-care (01) ==
LOC: RADSHAW 10:49
PROVIDERS: PCP Family Medicine; Visit Provider Family Medicine
DX: Z12.31 Encounter for screening mammogram for malignant neoplasm of breast (principal)
CPT/HCPCS: 77067

== ENCOUNTER → 2021-08-22 14:10 | Outpatient (BNVA) | payer BC, SELFPAY | PROVIDERS: PCP Family Medicine; Visit Provider Family Medicine | DX: G43.709 Chronic migraine without aura, not intractable, without status migrainosus (principal) | CPT/HCPCS: 80053; 85025; 85610 ==

== ENCOUNTER → 2021-11-08 13:06 | Day surgery (SDC) | payer BC, SELFPAY ==
[2021-11-08 13:29] VITALS: BP 114/87; PULSE 71; RESP 18; TEMP 36.2; O2SAT 99; BMI 29.2
[2021-11-08] MEDS: diphenhydrAMINE 50 mg/mL SDV 1mL 25 MG IVP (13:51)
[2021-11-08] MEDS: ondansetron 2 mg/ML SDV 2 mL 4 MG IVP (13:51)
[2021-11-08] MEDS: dihydroergotamine 1 mg/mL Inj IVP ×3 (13:56→14:40)
--- NOTE | 2021-11-08 15:09 | SUR.PREOP ---
IV discontinued, cath tip intact, patient tolerated well
== END ==
PROVIDERS: PCP Family Medicine; Visit Provider Specialist
DX: G43.711 Chronic migraine without aura, intractable, with status migrainosus (principal)
CPT/HCPCS: 96374; 96375; J1110; J1200; J2405

== ENCOUNTER → 2021-11-15 10:50 | Outpatient (BNVA) | payer BC, SELFPAY | PROVIDERS: PCP Family Medicine; Visit Provider Family Medicine | DX: K29.00 Acute gastritis without bleeding (principal); N95.1 Menopausal and female climacteric states; G43.711 Chronic migraine without aura, intractable, with status migrainosus; R00.2 Palpitations; G47.00 Insomnia, unspecified; I10 Essential (primary) hypertension | CPT/HCPCS: 83001; 83002; 84443; 85610 ==

== ENCOUNTER 2022-06-06 07:04 | Outpatient (CLI) | payer OTHER, SELFPAY ==
--- NOTE | 2022-06-06 07:58 | MM_ITS ---
WS: [id number] BILATERAL SCREENING DIGITAL TOMOSYNTHESIS MAMMOGRAM WITH CAD HISTORY: SCREENING COMPARISON: 05/15/2021 and 05/10/2020 Bilateral CC and MLO views with tomosynthesis and synthetic mammography submitted. Computer aided det ection analyzed. Breast composition: The breasts are heterogeneously dense, which may obscure small masses. No suspici ous masses, microcalcifications or architectural distortion. MM/[place] [id number] IMPRESSION: BI-RADS: 1-Negative FOLLOW UP: 1 Year Follow-up
== END 2022-06-06 07:05 | disposition home or self-care (01) ==
LOC: RAD 07:05
PROVIDERS: PCP Family Medicine; Visit Provider Nurse Practitioner Family
DX: Z12.31 Encounter for screening mammogram for malignant neoplasm of breast (principal)
CPT/HCPCS: 77063; 77067

== ENCOUNTER → 2024-02-18 11:42 | Outpatient (BNVA) | payer OTHER, SELFPAY | PROVIDERS: PCP Nurse Practitioner Family; Visit Provider Specialist | DX: G43.711 Chronic migraine without aura, intractable, with status migrainosus (principal); M54.81 Occipital neuralgia; M46.1 Sacroiliitis, not elsewhere classified | CPT/HCPCS: 27096; 64405; 99214; J1010; J3490 ==

== ENCOUNTER 2024-07-05 10:42 | Outpatient (CLI) | payer OTHER, SELFPAY ==
--- NOTE | 2024-07-05 10:45 | MM_ITS ---
WS: [id number] Bilateral screening 3D tomosynthesis digital mammogram, 07/05/2024 10:45 AM Clinical Data: SCREENING Comparison: 06/06/2022, 05/15/2021, 05/10/2020, 12/19/2017, 10/25/2015. Findings: No spiculated masses or clustered calcifications are seen. There are no secondary signs of carcinoma . MM/MM scr BI tomosynthesis [id number] Impression: Negative bilateral mammogram unchanged. Recommend annual screening mammograms. BIRADS: 1 - Negative FOLLOW UP: 1 Year Follow-up DENSITY: The breasts are heterogeneously dense, which may obscure small masses. The CAD stock checker was used
== END 2024-07-05 10:43 | disposition home or self-care (01) ==
LOC: RAD 10:44
PROVIDERS: PCP Nurse Practitioner Family; Visit Provider Nurse Practitioner Adult Health
DX: Z12.31 Encounter for screening mammogram for malignant neoplasm of breast (principal)
CPT/HCPCS: 77063; 77067

== ENCOUNTER → 2025-02-15 11:20 | Outpatient (BNVA) | payer OTHER, SELFPAY | PROVIDERS: PCP Nurse Practitioner Family; Visit Provider Specialist | DX: G43.711 Chronic migraine without aura, intractable, with status migrainosus (principal); M46.1 Sacroiliitis, not elsewhere classified | CPT/HCPCS: 99213 ==